=== PATIENT | male | born 1935 | race African-American/Black ===

== ENCOUNTER 2021-01-29 17:09 | Inpatient (IN) | payer OTHER ==
[~2021-01-29] VITALS: Ht 188 cm; Wt 102.1 kg
[2021-01-29] MEDS ORDERED: NALOXONE HCL 1 MG/ML 2ML VIAL IV PRN (17:30)
[2021-01-29 17:55] LABS: HEMATOCRIT. 23.6 % (42.0-52.0); HEMOGLOBIN. 7.8 g/dL (14.0-18.0); MEAN CORPUSCULAR HEMOGLOBIN 32.1 pg (28.0-32.0); MEAN PLATELET VOLUME 8.6 fl (7.4-10.4); RED BLOOD CELL COUNT 2.43 mill/uL (4.7-6.1); RED CELL DISTRIBUTION WIDTH 14.2 % (11.6-14.6)
[2021-01-29 18:00] LABS: CHLORIDE 105 mEq/L (98-107)
[2021-01-29 18:06] LABS: PLATELET 10 x1000/uL (130-400)
[2021-01-29] MEDS ORDERED: VANCOMYCIN 1 G PREMIX 200 ML IV ONE (18:30)
[2021-01-29] MEDS ORDERED: PIPERACILLIN/TAZ 3.375G PREMIX 50 ML IV ONE (18:30)
[2021-01-29] MEDS ORDERED: SODIUM CHLORIDE 0.9% 1000ML BAG (SEPSIS BOLUS) IV ONE (18:30)
[2021-01-29 18:44] LABS: CLARITY URINE CLOUDY (CLEAR); COLOR URINE ORANGE (YELLOW); KETONES URINE TRACE (NEGATIVE); LEUKOCYTE ESTERASE URINE TRACE (NEGATIVE); NITRITE URINE NEGATIVE (NEGATIVE); OCCULT BLOOD URINE 3+ (NEGATIVE); PH URINE 5.5 (4.5-8.0); PROTEIN URINE 2+ (NEGATIVE)
[2021-01-29 18:54] LABS: *COCAINE SCREEN URINE NEGATIVE (NEGATIVE)
[2021-01-29 18:55] LABS: *AMPHETAMINES SCREEN URINE NEGATIVE (NEGATIVE); *BARBITURATES SCREEN URINE NEGATIVE (NEGATIVE); CANNABINOID URINE SCREEN NEGATIVE (NEGATIVE); METHADONE URINE SCREEN NEGATIVE (NEGATIVE); OPIATES URINE SCREEN PRESUMTIVE POSITIVE (NEGATIVE); PHENCYCLIDINE URINE SCREEN NEGATIVE (NEGATIVE)
[2021-01-29 18:56] LABS: *BENZODIAZEPINES SCREEN URINE NEGATIVE (NEGATIVE)
[2021-01-29] MEDS ORDERED: ACETAMINOPHEN 325MG TABLET PO ONE (19:00)
[2021-01-29 19:10] LABS: INR 1.4; PROTHROMBIN TIME 14.4 sec (9.6-11.0)
[2021-01-29 19:20] LABS: PLATELET ESTIMATE MARKEDLY DECREASED
[2021-01-29] MEDS ORDERED: ACETAMINOPHEN 325MG SUPP PR ONE (19:30)
[2021-01-29] MEDS ORDERED: AMPICILLIN 2,000 MG in SODIUM CHLORIDE 0.9% 100 ML IV SCH (20:00)
[2021-01-29] MEDS ORDERED: ACYCLOVIR INJ 750 MG in DEXT 5% WATER 125 ML IV SCH (20:00)
[2021-01-29] MEDS ORDERED: CEFTRIAXONE 2 G PREMIX 50 ML IV ONE (20:15)
[2021-01-29] MEDS ORDERED: IOHEXOL-300 100 ML BOTTLE ONE (21:19)
[2021-01-29] MEDS: CEFTRIAXONE 2 G in DEXTROSE 5% WATER 50 ML IV NR (22:15)
[2021-01-30] VITALS (10 sets, daily range): BP systolic 111–154; BP diastolic 51–85
[2021-01-30] MEDS: CEFTRIAXONE 2 G in DEXTROSE 5% WATER 50 ML IV NR (00:49)
[2021-01-30 06:24] LABS: MEAN CORPUSCULAR HEMOGLOBIN 32.3 pg (28.0-32.0); MEAN CORPUSCULAR VOLUME 96.4 fL (80.0-94.0); MEAN PLATELET VOLUME 8.2 fl (7.4-10.4); RED BLOOD CELL COUNT 1.91 mill/uL (4.7-6.1); RED CELL DISTRIBUTION WIDTH 14.4 % (11.6-14.6)
[2021-01-30 06:30] LABS: CHLORIDE 108 mEq/L (98-107)
[2021-01-30 06:49] LABS: HEMOGLOBIN. 6.2 g/dL (14.0-18.0)
[2021-01-30 06:50] LABS: HEMATOCRIT. 18.4 % (42.0-52.0); PLATELET 12 x1000/uL (130-400)
[2021-01-30] MEDS ORDERED: PANTOPRAZOLE SODIUM 40 MG/VIAL IV SCH (07:30)
[2021-01-30] MEDS ORDERED: POTASSIUM CHLORIDE INJ 40 MEQ in DEXT 5% WATER 250 ML IV SCH (08:00)
[2021-01-30 08:34] LABS: PLATELET ESTIMATE MARKEDLY DECREASED
[2021-01-30] MEDS ORDERED: ACETAMINOPHEN 325MG TABLET PO PRN (08:45)
[2021-01-30] MEDS ORDERED: CEFEPIME 2,000 MG in DEXT 5% WATER 100 ML IV SCH (09:00)
[2021-01-30] MEDS ORDERED: VANCOMYCIN 750 MG PREMIX 150 ML IV SCH ×2 (10:00→16:00)
[2021-01-30] MEDS ORDERED: DEXT 5%/0.45% NACL 1000ML 1,000 ML IV SCH (11:45)
[2021-01-30] MEDS ORDERED: FUROSEMIDE 40MG/4ML VIAL IVP SCH (13:15)
[2021-01-30] MEDS ORDERED: HYDROMORPHONE HCL 4MG TABLET PO PRN (13:15)
[2021-01-30] MEDS ORDERED: DOCUSATE SODIUM 250MG CAPSULE PO SCH (13:15)
[2021-01-30] MEDS ORDERED: HYDROCODONE/ACETAMINOPHEN 5/325MG TABLET PO PRN (13:15)
[2021-01-30] MEDS ORDERED: BISACODYL 10MG SUPP PR PRN (13:30)
[2021-01-30] MEDS ORDERED: SORBITOL 70% SOLN 30ML PO SCH (14:00)
[2021-01-30] MEDS ORDERED: MAGNESIUM CITRATE 300ML SOLUTION PO NR (15:30)
[2021-01-30 16:32] LABS: HEMATOCRIT 23.2 % (42.0-52.0); HEMOGLOBIN 7.7 g/dL (14.0-18.0)
[2021-01-30] MEDS ORDERED: ONDANSETRON HCL 4MG/2ML INJ IV PRN (19:30)
[2021-01-30] MEDS ORDERED: FILGRASTIM-TBO 480 MCG/0.8 ML SYRINGE SQ NR (21:00)
[2021-01-31] MEDS ORDERED: PANTOPRAZOLE SODIUM 40 MG/VIAL IV SCH (09:00)
== END 2021-01-30 23:32 | disposition short-term general hospital (02) | DRG 917 ==
LOC: ER 17:09 → 5EST 01-30 01:23 → ENRESERV 01-30 10:34
PROVIDERS: ADMIT Internal Medicine; ATTEND Internal Medicine
PROC: 30233N1 Transfusion of Nonautologous Red Blood Cells into Peripheral Vein, Percutaneous Approach (ICD-10-PCS; principal; 2021-01-30)
PROC: 30233R1 Transfusion of Nonautologous Platelets into Peripheral Vein, Percutaneous Approach (ICD-10-PCS; 2021-01-30)
DX: T40.601A Poisoning by unspecified narcotics, accidental (unintentional), initial encounter (principal); A41.9 Sepsis, unspecified organism; E43 Unspecified severe protein-calorie malnutrition; G93.41 Metabolic encephalopathy; R65.20 Severe sepsis without septic shock; C91.90 Lymphoid leukemia, unspecified not having achieved remission; D61.818 Other pancytopenia; G93.40 Encephalopathy, unspecified; E87.6 Hypokalemia; K40.90 Unilateral inguinal hernia, without obstruction or gangrene, not specified as recurrent; Z20.822 Contact with and (suspected) exposure to COVID-19; K52.9 Noninfective gastroenteritis and colitis, unspecified; Z60.2 Problems related to living alone; S90.929A Unspecified superficial injury of unspecified foot, initial encounter; X58.XXXA Exposure to other specified factors, initial encounter; K59.00 Constipation, unspecified; Z91.19 Patient's noncompliance with other medical treatment and regimen; Z68.28 Body mass index [BMI] 28.0-28.9, adult; Y93.89 Activity, other specified; Y92.89 Other specified places as the place of occurrence of the external cause; Y99.8 Other external cause status
CPT/HCPCS: 36415; 71045; 74018; 74177; 80053; 80305; 81003; 82140; 83605; 83615; 83880; 84145; 84484; 85014; 85018; 85025; 86140; 86850; 86900; 86920; 87426; 93005; 99291; C9113; J0133; J0290; J0692; J0696; J1442; J1940; J2405; J2543; J3370; J3480; J7030; J7040; J7050; J7060; P9016; P9034; Q9967